=== PATIENT | male | born 1995 | race African-American/Black ===

== ENCOUNTER 2016-08-19 14:19 | Emergency (ER) | payer OTHER ==
[~2016-08-19] VITALS: Ht 175.3 cm; Wt 94.0 kg
[2016-08-19 14:31] VITALS: BP 134/80; PULSE 68; RESP 20; TEMP 98.2; O2SAT 98
[2016-08-19] MEDS ORDERED: DOXY1CAP74 PO (14:53)
[2016-08-19] MEDS ORDERED: ACETAMINOPHEN/HYDROcodone 325 MG/5 MG TAB PO ONE (15:00)
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
[2016-08-19] MEDS ORDERED: HYDR-3533 PO (15:40)
[2016-08-19] MEDS ORDERED: DICL75TA PO (15:40)
== END 2016-08-19 16:49 | disposition home or self-care (01) ==
LOC: NEPD 14:19
DX: S62.631A Displaced fracture of distal phalanx of left index finger, initial encounter for closed fracture (principal); V43.62XA Car passenger injured in collision with other type car in traffic accident, initial encounter; Y92.410 Unspecified street and highway as the place of occurrence of the external cause; F12.90 Cannabis use, unspecified, uncomplicated
CPT/HCPCS: 73140; 99284